=== PATIENT | female | born 1970 | race Caucasian/White ===

== ENCOUNTER → 2025-07-23 14:11 | Outpatient (ROUT) | payer BC, SELFPAY ==
[2025-07-23 14:20] LABS: Appearance Urine UA CLEAR; Bilirubin Urine UA NEGATIVE (NEGATIVE); Color Urine UA YELLOW; Glucose Urine UA NEGATIVE (Negative); Ketones Urine UA NEGATIVE (NEGATIVE); Leukocyte Esterase Urine UA NEGATIVE (NEGATIVE); Nitrite Urine UA NEGATIVE (Negative); Occult Blood Urine UA NEGATIVE (Negative); Protein Urine UA NEGATIVE (Negative); Specific Gravity Urine UA <=1.005 (1.000-1.035); Urobilinogen Urine UA 0.2 E.U./dL (0.2)
[2025-07-23 14:21] LABS: pH Urine UA 6.0 (4.5-8.0)
[2025-07-23 14:27] LABS: Culture Indicated Urine Cult Not Indicated
== END ==
PROVIDERS: PCP Naturopath; Visit Provider Naturopath
DX: N30.90 Cystitis, unspecified without hematuria (principal)
CPT/HCPCS: 81001